=== PATIENT | male | born 1945 | race Two or more races ===

== ENCOUNTER 2025-02-24 16:30 | Emergency (ER) | payer MEDICARE, OTHER ==
[~2025-02-24] VITALS: Ht 170.2 cm; Wt 83.9 kg
[2025-02-24] MEDS ORDERED: AMOX500C2 PO (16:49)
[2025-02-24] MEDS ORDERED: MELO-107 PO (16:49)
[2025-02-24] MEDS ORDERED: DONE5TAB7 PO (16:49)
[2025-02-24] MEDS ORDERED: ATOR20TA PO (16:49)
[2025-02-24] MEDS ORDERED: TRAZ150T75 PO (16:49)
[2025-02-24] MEDS ORDERED: CITA10TA17 PO (16:49)
[2025-02-24 17:37] VITALS: BP 121/67; O2SAT 96
== END 2025-02-24 17:37 | disposition home or self-care (01) ==
LOC: ER 16:34
DX: S46.812A Strain of other muscles, fascia and tendons at shoulder and upper arm level, left arm, initial encounter (principal); E78.5 Hyperlipidemia, unspecified; F03.90 Unspecified dementia, unspecified severity, without behavioral disturbance, psychotic disturbance, mood disturbance, and anxiety; Z79.1 Long term (current) use of non-steroidal anti-inflammatories (NSAID); Z79.899 Other long term (current) drug therapy; Z98.890 Other specified postprocedural states; W18.2XXA Fall in (into) shower or empty bathtub, initial encounter; Y93.E1 Activity, personal bathing and showering; Y92.091 Bathroom in other non-institutional residence as the place of occurrence of the external cause; Y99.8 Other external cause status
CPT/HCPCS: A4606; A4663

== ENCOUNTER 2025-04-03 20:39 | Emergency (ER) | payer MEDICARE, OTHER ==
[~2025-04-03] VITALS: Ht 172.7 cm; Wt 86.2 kg
[~2025-04-03 20:39] MED LIST: AMOX500C2 PO; ATOR20TA PO; CITA10TA17 PO; DONE5TAB7 PO; MELO-107 PO; TRAZ150T75 PO
[2025-04-03 23:00] VITALS: BP 122/69
[2025-04-03 23:15] LABS: PLATELET COUNT (AUTO) 211 K/uL (152-348); RED BLOOD CELL COUNT(AUTO) 4.67 MIL/uL (4.06-5.63); RED CELL DISTRIBUTION WIDTH 13.7 % (12.1-16.2); WHITE BLOOD COUNT (AUTO) 4.9 K/uL (3.6-10.2)
[2025-04-03 23:22] LABS: CREATININE 0.9 mg/dL (0.6-1.3); SODIUM SERUM 138 mmol/L (136-145); UREA NITROGEN, BLOOD 23 mg/dL (7-18)
[2025-04-03 23:28] LABS: ASPARTATE AMINOTRANSFERASE 14 U/L (15-37); TOTAL PROTEIN, SERUM 6.9 g/dL (6.4-8.2)
[2025-04-04 01:07] VITALS: BP 128/66; TEMP 98.5; O2SAT 98
== END 2025-04-04 01:14 | disposition home or self-care (01) ==
LOC: ER 20:56
DX: R60.0 Localized edema (principal); I83.90 Asymptomatic varicose veins of unspecified lower extremity; E78.5 Hyperlipidemia, unspecified; R07.9 Chest pain, unspecified; F03.90 Unspecified dementia, unspecified severity, without behavioral disturbance, psychotic disturbance, mood disturbance, and anxiety; Z79.1 Long term (current) use of non-steroidal anti-inflammatories (NSAID); Z79.899 Other long term (current) drug therapy; Z98.890 Other specified postprocedural states
CPT/HCPCS: 36415; 71045; 84484; 85025; A4606; A4663

== ENCOUNTER 2025-07-04 19:14 | Inpatient (IN) | payer MEDICARE, OTHER ==
[~2025-07-04] VITALS: Ht 170.2 cm; Wt 85.0 kg
[2025-07-04 19:58] LABS: PLATELET COUNT (AUTO) 268 K/uL (152-348); RED BLOOD CELL COUNT(AUTO) 4.17 MIL/uL (4.06-5.63); RED CELL DISTRIBUTION WIDTH 13.8 % (12.1-16.2); WHITE BLOOD COUNT (AUTO) 6.4 K/uL (3.6-10.2)
[2025-07-04 20:07] LABS: CREATININE 1.1 mg/dL (0.6-1.3); SODIUM SERUM 138 mmol/L (136-145); UREA NITROGEN, BLOOD 20 mg/dL (7-18)
[2025-07-04 20:12] LABS: ASPARTATE AMINOTRANSFERASE 18 U/L (15-37); TOTAL PROTEIN, SERUM 7.0 g/dL (6.4-8.2)
[2025-07-04] MEDS: FUROSEMIDE 20 MG/2 ML VIAL IV ONE (20:46)
[2025-07-04] MEDS ORDERED: FURO-152 PO (20:47)
[2025-07-04] MEDS ORDERED: BREX1TAB PO (20:47)
[2025-07-04] MEDS ORDERED: TAMS-3 PO (20:47)
[2025-07-04] MEDS ORDERED: TRAZ-257 PO (20:47)
[2025-07-04] MEDS ORDERED: ONDANSETRON 4 MG/2 ML VIAL IV PRN (21:30)
[2025-07-04] MEDS ORDERED: ACETAMINOPHEN 325 MG TABLET PO PRN (21:30)
[2025-07-04] MEDS ORDERED: REMEDY ESSENTIAL ZINC PASTE 113 GM TP PRN (21:30)
[2025-07-04] MEDS ORDERED: MAGNESIUM HYDROXIDE 30 ML LIQUID UDC PO PRN (21:30)
[2025-07-04 21:35] VITALS: BP 130/70
[2025-07-04] MEDS: ENOXAPARIN SODIUM 40 MG/0.4 ML DISP.SYRIN SQ SCH (22:16)
[2025-07-04 22:30] VITALS: BP 121/52; TEMP 98.7; O2SAT 95
[2025-07-04] MEDS: ZOLPIDEM 5 MG TABLET PO PRN (23:31)
[2025-07-05] VITALS: BP 115/62; TEMP 98.3; O2SAT 96
[2025-07-05 04:00] VITALS: BP 130/90; TEMP 97.9; O2SAT 95
[2025-07-05] MEDS: PANTOPRAZOLE SODIUM 40 MG TABLET.DR PO SCH (06:07)
[2025-07-05 07:35] LABS: PLATELET COUNT (AUTO) 284 K/uL (152-348); RED BLOOD CELL COUNT(AUTO) 4.55 MIL/uL (4.06-5.63); RED CELL DISTRIBUTION WIDTH 13.9 % (12.1-16.2); WHITE BLOOD COUNT (AUTO) 5.1 K/uL (3.6-10.2)
[2025-07-05 07:43] LABS: CREATININE 1.0 mg/dL (0.6-1.3); SODIUM SERUM 138 mmol/L (136-145); UREA NITROGEN, BLOOD 16 mg/dL (7-18)
[2025-07-05 08:00] VITALS: BP 109/63; TEMP 98.6; O2SAT 94
[2025-07-05] MEDS: TAMSULOSIN HCL 0.4 MG CAP.SR.24H PO SCH (08:14)
[2025-07-05] MEDS: CITALOPRAM 10 MG TABLET PO SCH (08:14)
[2025-07-05] MEDS: FUROSEMIDE 20 MG/2 ML VIAL IV SCH (08:14)
[2025-07-05] MEDS ORDERED: TRAZODONE 100 MG TABLET PO SCH (21:00)
[2025-07-05] MEDS ORDERED: ATORVASTATIN 20 MG TABLET PO SCH (21:00)
[2025-07-05] MEDS ORDERED: DONEPEZIL 5 MG TABLET PO SCH (21:00)
== END 2025-07-05 14:30 | disposition home or self-care (01) | DRG 844 ==
LOC: ER 19:14 → TELE3 21:24
PROVIDERS: ADMIT Student in an Organized Health Care Education/Training Program; ATTEND Student in an Organized Health Care Education/Training Program
DX: E88.09 Other disorders of plasma-protein metabolism, not elsewhere classified (principal); E44.0 Moderate protein-calorie malnutrition; L97.412 Non-pressure chronic ulcer of right heel and midfoot with fat layer exposed; I70.234 Atherosclerosis of native arteries of right leg with ulceration of heel and midfoot; F03.90 Unspecified dementia, unspecified severity, without behavioral disturbance, psychotic disturbance, mood disturbance, and anxiety; D64.9 Anemia, unspecified; I70.221 Atherosclerosis of native arteries of extremities with rest pain, right leg; E78.5 Hyperlipidemia, unspecified; N40.0 Benign prostatic hyperplasia without lower urinary tract symptoms; R09.89 Other specified symptoms and signs involving the circulatory and respiratory systems; I51.7 Cardiomegaly; Z53.20 Procedure and treatment not carried out because of patient's decision for unspecified reasons; Z79.899 Other long term (current) drug therapy
CPT/HCPCS: 36415; 71045; 83735; 84100; 84484; 85025; A4606; G0378; J1650; J1938

== ENCOUNTER 2025-07-08 13:52 | Emergency (ER) | payer MEDICARE, OTHER ==
[~2025-07-08] VITALS: Ht 165.1 cm; Wt 86.2 kg
[~2025-07-08 13:52] MED LIST changes: -AMOX500C2 PO; +BREX1TAB PO; +FURO-152 PO; -MELO-107 PO; +TAMS0.4C PO; +TRAZ-257 PO; -TRAZ150T75 PO
[2025-07-08] MEDS ORDERED: FUROSEMIDE 20 MG/2 ML VIAL ONE (14:24)
[2025-07-08] MEDS: FUROSEMIDE 20 MG/2 ML VIAL IVP ONE (14:31)
[2025-07-08 14:35] LABS: PLATELET COUNT (AUTO) 257 K/uL (152-348); RED BLOOD CELL COUNT(AUTO) 4.12 MIL/uL (4.06-5.63); RED CELL DISTRIBUTION WIDTH 13.5 % (12.1-16.2); WHITE BLOOD COUNT (AUTO) 4.6 K/uL (3.6-10.2)
[2025-07-08 14:44] LABS: CREATININE 0.9 mg/dL (0.6-1.3); SODIUM SERUM 143 mmol/L (136-145); UREA NITROGEN, BLOOD 20 mg/dL (7-18)
[2025-07-08 14:50] LABS: ASPARTATE AMINOTRANSFERASE 18 U/L (15-37); TOTAL PROTEIN, SERUM 6.8 g/dL (6.4-8.2)
[2025-07-08 15:40] LABS: *BILIRUBIN,URIN NEGATIVE (NEGATIVE); *BLOOD, URINE NEGATIVE (NEGATIVE); *CLARITY,URINE CLEAR (CLEAR); *KETONES,URINE NEGATIVE (NEGATIVE); *PROTEIN,URINE NEGATIVE (NEGATIVE); *UROBILINOGEN,URINE 0.2 E.U./dl (NORMAL); LEUKOCYTE ESTERASE ,URINE NEGATIVE (NEGATIVE); NITRITE, URINE NEGATIVE (NEGATIVE); UGLUCOSE NEGATIVE (NEGATIVE)
[2025-07-08 15:50] LABS: *COLOR,URINE LIGHT YELLOW (YELLOW)
[2025-07-08 16:10] VITALS: BP 111/51
[2025-07-08] MEDS ORDERED: FURO20TA4 PO (16:33)
[2025-07-08 17:04] VITALS: BP 111/51; O2SAT 96
== END 2025-07-08 16:43 | disposition home or self-care (01) ==
LOC: ER 13:52
DX: I50.9 Heart failure, unspecified (principal); R60.0 Localized edema; E78.5 Hyperlipidemia, unspecified; F03.90 Unspecified dementia, unspecified severity, without behavioral disturbance, psychotic disturbance, mood disturbance, and anxiety; I11.0 Hypertensive heart disease with heart failure; N40.0 Benign prostatic hyperplasia without lower urinary tract symptoms; Z79.1 Long term (current) use of non-steroidal anti-inflammatories (NSAID); Z79.899 Other long term (current) drug therapy; Z98.890 Other specified postprocedural states
CPT/HCPCS: 36415; 71045; 84484; 85025; A4606; A4663; J1938